=== PATIENT | male | born 1960 | race African-American/Black ===

== ENCOUNTER 2018-09-06 08:44 | Emergency (ER) | payer MEDICARE ==
[~2018-09-06] VITALS: Ht 175.3 cm; Wt 83.9 kg
[2018-09-06] MEDS ORDERED: HYDROCHLOROTH12.5 M1 (09:11)
[2018-09-06] MEDS ORDERED: ATORVASTATIN CA40 MG PO (09:11)
[2018-09-06] MEDS ORDERED: METFORMIN HCL850 MG PO (09:11)
[2018-09-06] MEDS ORDERED: FAMOTIDINE 20 MG/2 ML VIAL IV NR (09:30)
[2018-09-06] MEDS ORDERED: FAMOTIDINE 20 MG/2 ML VIAL IV ONE (09:31)
[2018-09-06] MEDS ORDERED: IOPAMIDOL 370 MG/ML 200 ML INFUS..BTL INJ ONE (10:06)
--- NOTE | 2018-09-06 11:17 | Diagnostic Imaging Report ---
EXAM: CT Abdomen and Pelvis WITH contrast INDICATION: Abdominal pain. ^[id number] ^[id number] COMPARISON: None. TECHNIQUE: Abdomen and pelvis were scanned utilizing a multidetector helical scanner from the lung base to the pubic symphysis after administration of IV contrast. Coronal and sagittal reformations were obtained. Dose modulation, iterative reconstruction, and/or weight based adjustment of the mA/kV was utilized to reduce the radiation dose to as low as reasonably achievable. Routine protocol was performed. Scan was performed when during portal venous phase. IV CONTRAST: 100 mL of Isovue-370 ORAL CONTRAST: Gastroview COMPLICATIONS: None RADIATION DOSE: Total DLP: 774.50 mGy*cm Estimated effective dose: (DLP x 0.015 x size factor) mSv CTDIvol has been reviewed. It is below the limits set by the Radiation Protocol Committee (RPC). FINDINGS: LINES and TUBES: None. LOWER THORAX: Scattered bibasilar cysts/pneumatoceles. HEPATOBILIARY: No focal hepatic lesions. No biliary ductal dilation. GALLBLADDER: Small calcified gallstones are seen at the fundus. Wall thickening and mild surrounding fat stranding. SPLEEN: No splenomegaly. PANCREAS: No focal masses or ductal dilatation. ADRENALS: No adrenal nodules KIDNEYS/URETERS: Kidneys enhance symmetrically. No hydronephrosis. No cystic or solid mass lesions. No stones. GI TRACT: No abnormal distention, wall thickening, or evidence of bowel obstruction. Appendix is normal. PELVIC ORGANS/BLADDER: Unremarkable. LYMPH NODES: No lymphadenopathy. VESSELS: Mild aortoiliac atherosclerotic disease. PERITONEUM / RETROPERITONEUM: No free air or fluid. BONES: L5-S1 posterior fusion with disc spacer placement. SOFT TISSUES: Unremarkable. IMPRESSION: Cholelithiasis with gallbladder wall thickening and mild surrounding fat stranding. Acute cholecystitis cannot be excluded. Signed by: Dr. Bird Caruso MD on 09/06/2018 11:14 AM
== END 2018-09-06 11:45 | disposition left against medical advice (07) ==
LOC: FSED 08:44
DX: R10.13 Epigastric pain (principal); R11.2 Nausea with vomiting, unspecified; K80.20 Calculus of gallbladder without cholecystitis without obstruction; I10 Essential (primary) hypertension; E11.9 Type 2 diabetes mellitus without complications; E78.5 Hyperlipidemia, unspecified
CPT/HCPCS: 74177; 80053; 80076; 81003; 85025; 85610; 96374; 99284; Q9967